=== PATIENT | female | born 1995 | race Hispanic/Latino ===

== ENCOUNTER 2020-02-10 17:55 | Inpatient (IN) | payer MEDICAID ==
[2020-02-09] MEDS: AMPICILLIN 1GM+NS 50ML 50 ML IV SCH (23:00)
[~2020-02-10] VITALS: Ht 154.9 cm; Wt 100.2 kg
[2020-02-10] MEDS ORDERED: LACTATED RINGERS 1000ML 1,000 ML IV PRN (17:58)
[2020-02-10] MEDS ORDERED: ROPIVACAINE 0.2% 100ML VIAL 100 ML EP SCH (18:00)
[2020-02-10] MEDS ORDERED: PROMETHAZINE HCL 25 MG/ML 1ML AMPULE IM PRN (18:00)
[2020-02-10] MEDS ORDERED: OXYTOCIN-LR 20 UNITS/1000 ML 1,000 ML IV SCH (18:00)
[2020-02-10] MEDS ORDERED: NALOXONE HCL 0.4 MG/1 ML ML IV PRN (18:00)
[2020-02-10] MEDS ORDERED: EPHEDRINE SULFATE 50 MG/ML AMPULE IVP PRN (18:00)
[2020-02-10] MEDS ORDERED: DINOPROSTONE 10 MG VAGINAL SUPP VG SCH (18:00)
[2020-02-10] MEDS ORDERED: MEPERIDINE-PF 50 MG/ML SYG IVP PRN (18:00)
[2020-02-10] MEDS ORDERED: LACTATED RINGERS 500 ML 500 ML IV PRN (18:00)
[2020-02-10] MEDS ORDERED: AMPICILLIN 2GM+NS 100ML 100 ML IV SCH (18:30)
[2020-02-10 18:58] LABS: HEMATOCRIT 32.5 % (36-48); MEAN CORPUSCULAR HEMOGLOBIN 24.7 pg (27.0-33.0); MEAN CORPUSCULAR HGB CONC 32.3 g/dL (32.0-36.0); MEAN CORPUSCULAR VOLUME 76.5 fL (79-99); PLATELET COUNT (AUTO) 163 K/uL (130-400); RED BLOOD CELL COUNT(AUTO) 4.25 MIL/uL (4.00-5.50); RED CELL DISTRIBUTION WIDTH 15.9 % (11.0-15.5); WHITE BLOOD COUNT (AUTO) 9.5 K/uL (4.8-10.8)
[2020-02-10 18:59] LABS: APPEARANCE,URINE CLOUDY (CLEAR); BILIRUBIN,URINE NEGATIVE (NEGATIVE); COLOR,URINE YELLOW (YELLOW); GLUCOSE, URINE (UA) NEGATIVE (NEGATIVE); KETONES,URINE 15 mg/dL (NEGATIVE); LEUKOCYTE ESTERASE ,URINE SMALL (NEGATIVE); NITRATE,URINE NEGATIVE (NEGATIVE); OCCULT BLOOD,URINE NEGATIVE (NEGATIVE); PH,URINE 6.5 (5.0-8.0); PROTEIN,URINE TRACE mg/dL (NEGATIVE)
[2020-02-10 19:08] LABS: AMPHET/METH SCREEN,URINE NEGATIVE (NEGATIVE); BARBITURATE SCREEN, URINE NEGATIVE (NEGATIVE); BENZODIAZEPINES SCREEN,URINE NEGATIVE (NEGATIVE); CANNABINOID SCREEN,URINE NEGATIVE (NEGATIVE); COCAINE SCREEN,URINE NEGATIVE (NEGATIVE); OPIATE SCREEN,URINE NEGATIVE (NEGATIVE); PHENCYCLIDINE SCREEN,URINE NEGATIVE (NEGATIVE)
[2020-02-10 19:12] LABS: BACTERIA,URINE Few /HPF (None Seen); RBC,URINE 0-1 /HPF (0-1)
[2020-02-10 19:13] LABS: SQUAMOUS EPITHELIAL CELL,UR Moderate /HPF (0-2)
[2020-02-10 19:15] VITALS: BP 117/70
[2020-02-10] MEDS ORDERED: PREN1TAB80 PO (20:39)
[2020-02-11] MEDS: AMPICILLIN 1GM+NS 50ML 50 ML IV SCH ×2 (02:41→06:33)
[2020-02-11] MEDS ORDERED: LACTATED RINGERS 1000ML 1,000 ML IV SCH (07:15)
[2020-02-11] MEDS ORDERED: CEFAZOLIN SODIUM 1 GM VIAL IVP PRN (07:15)
[2020-02-11] MEDS ORDERED: CEFAZOLIN SODIUM 1 GM VIAL ONE (07:31)
[2020-02-11] MEDS ORDERED: DURAMORPH PF1 MG/ML 10ML AMP IV ONE (07:31)
[2020-02-11] MEDS ORDERED: OXYTOCIN 10 USP UNITS/ML ONE (07:32)
[2020-02-11] MEDS ORDERED: EPINEPHRINE 1 MG/ML AMPULE ONE (07:34)
[2020-02-11] MEDS ORDERED: OXYTOCIN 10 USP UNITS/ML 20 UNIT in LACTATED RINGERS 1000ML 1,000 ML IV SCH (08:00)
[2020-02-11] MEDS ORDERED: CEFAZOLIN SODIUM 1 GM VIAL IVP ONE (08:20)
[2020-02-11] MEDS ORDERED: GLYCOPYRROLATE 1 MG/5 ML SYRINGE ONE (08:22)
[2020-02-11] MEDS ORDERED: MIDAZOLAM HCL 1 MG/ML 2ML VIAL ONE (08:26)
[2020-02-11] MEDS ORDERED: SODIUM CHLORIDE 0.9% 10 ML VIAL IVP PRN (09:00)
[2020-02-11] MEDS ORDERED: MEPERIDINE-PF 75 MG/ML SYG IM PRN (09:00)
[2020-02-11] MEDS ORDERED: OXYTOCIN-LR 20 UNITS/1000 ML 1,000 ML IV PRN (09:00)
[2020-02-11] MEDS ORDERED: DEXTROSE 5 %-0.45 % NACL 1,000 ML IV PRN (09:00)
[2020-02-11] MEDS ORDERED: ONDANSETRON HCL 4 MG/2 ML VIAL IVP PRN (09:45)
[2020-02-11] MEDS ORDERED: NALOXONE HCL 0.4 MG/1 ML ML IVP PRN ×2 (09:45)
[2020-02-11] MEDS ORDERED: DiphenhydrAMINE HCL 50 MG/ML VIAL IVP PRN (09:45)
[2020-02-11 12:30] VITALS: BP 112/68
[2020-02-11] MEDS ORDERED: MEPERIDINE-PF 100 MG/ML SYG ONE (12:30)
[2020-02-11] MEDS: PROMETHAZINE HCL 25 MG/ML 1ML AMPULE IM PRN (12:59)
[2020-02-11 16:26] VITALS: BP 105/51
[2020-02-11 19:45] VITALS: BP 100/51
[2020-02-12] VITALS (8 sets, daily range): BP systolic 93–123; BP diastolic 49–87
[2020-02-12] MEDS ORDERED: MEPERIDINE-PF 50 MG/ML SYG ONE (00:58)
[2020-02-12] MEDS ORDERED: MEPERIDINE-PF 25 MG/ML SYG ONE (00:58)
[2020-02-12] MEDS: PROMETHAZINE HCL 25 MG/ML 1ML AMPULE IM PRN ×2 (01:19→04:21)
[2020-02-12] MEDS ORDERED: MEPERIDINE-PF 100 MG/ML SYG ONE (04:13)
--- NOTE | 2020-02-12 06:45 | NUR ---
Espinoza; Espinoza Catheter taken out patient tolerated it well. Advice to call for help if needed. Lilian care done, abdominal Binder applied.
[2020-02-12 06:56] LABS: HEMATOCRIT 31.2 % (36-48); MEAN CORPUSCULAR HEMOGLOBIN 24.4 pg (27.0-33.0); MEAN CORPUSCULAR HGB CONC 32.4 g/dL (32.0-36.0); MEAN CORPUSCULAR VOLUME 75.4 fL (79-99); RED BLOOD CELL COUNT(AUTO) 4.14 MIL/uL (4.00-5.50); RED CELL DISTRIBUTION WIDTH 15.9 % (11.0-15.5); WHITE BLOOD COUNT (AUTO) 12.5 K/uL (4.8-10.8)
[2020-02-12] MEDS ORDERED: ACETAMINOPHEN EXTRA STRENGTH 500 MG TABLET PO PRN (09:00)
[2020-02-12] MEDS ORDERED: DIPH,PERTUSS(ACELL),TET VAC/PF 0.5 ML VIAL IM SCH (09:00)
[2020-02-12] MEDS ORDERED: BISACODYL 10 MG SUPP.RECT RC PRN (09:00)
[2020-02-12] MEDS ORDERED: LANOLIN 30GM OINTMENT TP PRN (09:00)
[2020-02-12] MEDS: SIMETHICONE 80 MG TAB.CHEW PO PRN ×3 (09:10→20:54)
[2020-02-12] MEDS: DOCUSATE SODIUM 100 MG CAP PO SCH ×2 (09:10→20:55)
[2020-02-12] MEDS: HYDROCODONE/ACETAMINOPHEN 5/325 MG TAB PO PRN ×2 (09:11→23:35)
[2020-02-12 10:12] LABS: HEPATITIS Bs ANTIGEN SCREEN P Negative (Negative)
[2020-02-12] MEDS: ACETAMINOPHEN-CODEINE 300/30MG TAB PO PRN (17:03)
[2020-02-13 04:10] VITALS: BP 102/49
[2020-02-13 07:25] VITALS: BP 118/69
[2020-02-13] MEDS: DOCUSATE SODIUM 100 MG CAP PO SCH (09:18)
[2020-02-13] MEDS: SIMETHICONE 80 MG TAB.CHEW PO PRN (09:18)
[2020-02-13] MEDS: ACETAMINOPHEN-CODEINE 300/30MG TAB PO PRN (09:18)
--- NOTE | 2020-02-13 11:35 | NUR ---
DISCHARGE PT LEFT UNIT VIA WHEELCHAIR, WITH BABY IN ARMS, ACCOMPANIED BY FAMILY MEMBER. DENIED PAIN AND HAD NO COMPLAINTS. BABY STRAPPED IN CAR SEAT. PT AND BABY TRANSPORTED BY PERSONAL VEHICLE.
== END 2020-02-13 11:35 | disposition home or self-care (01) | DRG 540 ==
LOC: LDH 17:55 → WSH 02-11 11:18
PROVIDERS: ADMIT Obstetrics & Gynecology; ATTEND Obstetrics & Gynecology
PROC: 10D00Z1 Extraction of Products of Conception, Low, Open Approach (ICD-10-PCS; principal; 2020-02-11 08:00)
DX: O32.1XX0 Maternal care for breech presentation, not applicable or unspecified (principal); D27.1 Benign neoplasm of left ovary; O99.824 Streptococcus B carrier state complicating childbirth; Z37.0 Single live birth; Z3A.39 39 weeks gestation of pregnancy; Z88.8 Allergy status to other drugs, medicaments and biological substances; O99.89 Other specified diseases and conditions complicating pregnancy, childbirth and the puerperium
CPT/HCPCS: 36415; 59510; 76815; 80305; 81001; 85027; 86592; 86701; 86850; 86900; 86901; 87088; 87340; 87390; A4344; G0378; J0171; J0290; J0690; J1200; J2175; J2250; J2274; J2405; J2550; J2590; J3490; J7120

== ENCOUNTER 2021-11-30 10:53 | Emergency (ER) | payer MEDICAID ==
[~2021-11-30] VITALS: Ht 154.9 cm; Wt 77.1 kg
[~2021-11-30 10:53] MED LIST: PREN1TAB80 PO
[2021-11-30 10:58] VITALS: BP 113/66
[2021-11-30] MEDS ORDERED: PENI500T2 PO (11:37)
[2021-11-30] MEDS ORDERED: ACET-2079 PO (11:37)
== END 2021-11-30 11:45 | disposition home or self-care (01) ==
LOC: EDH 10:53
DX: M27.2 Inflammatory conditions of jaws (principal); K08.89 Other specified disorders of teeth and supporting structures; Z88.6 Allergy status to analgesic agent

== ENCOUNTER 2024-02-21 18:35 | Emergency (ER) | payer MEDICAID, OTHER ==
[~2024-02-21] VITALS: Ht 154.9 cm; Wt 81.6 kg
[~2024-02-21 18:35] MED LIST changes: +ACET-2079 PO; +PENI500T2 PO
[2024-02-21] MEDS: ONDANSETRON 4MG INJ IVP ONE (19:53)
[2024-02-21] MEDS: 0.9%NACL 1000ML 1,000 ML IV ONE (19:53)
[2024-02-21] MEDS: MORPHINE 2 MG SYG IVP ONE (19:54)
[2024-02-21 19:59] LABS: BASOPHILS # (AUTO) 0.06 K/uL (0.00-0.20); BASOPHILS % (AUTO) 0.3 % (0.0-5.0); EOSINOPHILS # (AUTO) 0.11 K/uL (0.00-0.70); EOSINOPHILS % (AUTO) 0.6 % (0.0-8.0); HEMATOCRIT 43.3 % (36-48); IMMATURE GRANULOCYTE ABSOLUTE 0.16 K/uL (0-1); LYMPHOCYTES # (AUTO) 2.3 K/uL (1.0-4.8); LYMPHOCYTES % (AUTO) 13.2 % (21.0-51.0); MEAN CORPUSCULAR HEMOGLOBIN 29.4 pg (27.0-33.0); MEAN CORPUSCULAR HGB CONC 34.9 g/dL (32.0-36.0); MEAN CORPUSCULAR VOLUME 84.4 fL (79-99); NEUTROPHILS # (AUTO) 13.7 K/uL (1.8-7.7); PLATELET COUNT (AUTO) 295 K/uL (130-400); RED BLOOD CELL COUNT(AUTO) 5.13 MIL/uL (4.00-5.50); RED CELL DISTRIBUTION WIDTH 12.8 % (11.0-15.5); WHITE BLOOD COUNT (AUTO) 17.3 K/uL (4.8-10.8)
[2024-02-21 20:13] LABS: CREATININE 0.8 mg/dL (0.5-1.0); POTASSIUM 3.8 mmol/L (3.5-5.1)
[2024-02-21 20:18] LABS: BILIRUBIN,TOTAL 0.4 mg/dL (0.2-1.0); TOTAL PROTEIN, SERUM 7.8 g/dL (6.0-8.3)
[2024-02-21 20:40] LABS: APPEARANCE,URINE CLOUDY (CLEAR); BILIRUBIN,URINE NEGATIVE (NEGATIVE); COLOR,URINE YELLOW (YELLOW); GLUCOSE, URINE (UA) NEGATIVE (NEGATIVE); KETONES,URINE 150 mg/dL (NEGATIVE); LEUKOCYTE ESTERASE ,URINE 250 Leu/uL (NEGATIVE); NITRATE,URINE NEGATIVE (NEGATIVE); OCCULT BLOOD,URINE NEGATIVE (NEGATIVE); PROTEIN,URINE 30 mg/dL (NEGATIVE)
[2024-02-21] MEDS: 0.9%NACL 1000ML 1,434 ML IV SCH (20:46)
[2024-02-21] MEDS: CEFTRIAXONE 2GM VIAL IVPB SCH (20:46)
[2024-02-21 20:53] LABS: HCG,QUALITATIVE URINE NEGATIVE (NEGATIVE)
[2024-02-21 20:54] LABS: ADD UA MICROSCOPIC YES
[2024-02-21 20:55] LABS: BACTERIA,URINE RARE /HPF (None Seen); MUCUS,URINE MOD LPF (None Seen); SQUAMOUS EPITHELIAL CELL,UR MANY /HPF (0-2)
[2024-02-21 21:24] VITALS: BP 128/78; PULSE 59; RESP 17; O2SAT 96
[2024-02-21] MEDS ORDERED: ONDA-243 PO (21:42)
[2024-02-21] MEDS: METOCLOPRAMIDE 10 MG/2 ML VIAL IVP SCH (21:53)
[2024-02-21] MEDS: BISACODYL 10 MG SUPP.RECT RC SCH (21:53)
[2024-02-21] MEDS: LACTULOSE 20 GM/30 ML UDCUP PO SCH (21:53)
[2024-02-23] MEDS ORDERED: ONDA-243 PO (14:03)
== END 2024-02-21 22:02 | disposition home or self-care (01) ==
LOC: EDH 18:35
DX: K59.00 Constipation, unspecified (principal); R11.2 Nausea with vomiting, unspecified; E86.0 Dehydration; D25.9 Leiomyoma of uterus, unspecified; D72.829 Elevated white blood cell count, unspecified; Z88.6 Allergy status to analgesic agent
CPT/HCPCS: 99285; 74176; 96365; 96375; 96361; 80053; 84703; 85025; 87040 ×2; 87086; 83605; 81001; 81025; 36415; J2270; J7030; J0696; J2405; J2765

== ENCOUNTER → 2024-02-23 | Emergency (ER) | payer BC, OTHER ==
[~2024-02-23] VITALS: Ht 154.9 cm; Wt 83.9 kg
[~2024-02-23] MED LIST changes: +METO10TA41 PO; +ONDA-243 PO; +PANT40TA55 PO; +POTA-187 PO
[2024-02-23 10:05] LABS: BASOPHILS # (AUTO) 0.08 K/uL (0.00-0.20); BASOPHILS % (AUTO) 0.9 % (0.0-5.0); EOSINOPHILS # (AUTO) 0.08 K/uL (0.00-0.70); EOSINOPHILS % (AUTO) 0.9 % (0.0-8.0); HEMATOCRIT 42.4 % (36-48); IMMATURE GRANULOCYTE ABSOLUTE 0.05 K/uL (0-1); LYMPHOCYTES # (AUTO) 2.3 K/uL (1.0-4.8); LYMPHOCYTES % (AUTO) 24.9 % (21.0-51.0); MEAN CORPUSCULAR HEMOGLOBIN 29.8 pg (27.0-33.0); MEAN CORPUSCULAR HGB CONC 35.6 g/dL (32.0-36.0); MEAN CORPUSCULAR VOLUME 83.6 fL (79-99); MONOCYTES # (AUTO) 0.6 K/uL (0.1-1.0); MONOCYTES % (AUTO) 6.2 % (3.0-13.0); NEUTROPHILS % (AUTO) 66.5 % (40.0-77.0); PLATELET COUNT (AUTO) 272 K/uL (130-400); RED BLOOD CELL COUNT(AUTO) 5.07 MIL/uL (4.00-5.50); RED CELL DISTRIBUTION WIDTH 12.6 % (11.0-15.5); WHITE BLOOD COUNT (AUTO) 9.1 K/uL (4.8-10.8)
[2024-02-23 10:17] LABS: CREATININE 0.8 mg/dL (0.5-1.0); POTASSIUM 3.4 mmol/L (3.5-5.1)
[2024-02-23 10:20] LABS: ALBUMIN 4.2 g/dL (3.5-5.0); BILIRUBIN,TOTAL 0.8 mg/dL (0.2-1.0); TOTAL PROTEIN, SERUM 7.7 g/dL (6.0-8.3)
[2024-02-23 10:29] LABS: APPEARANCE,URINE CLOUDY (CLEAR); BILIRUBIN,URINE NEGATIVE (NEGATIVE); COLOR,URINE YELLOW (YELLOW); GLUCOSE, URINE (UA) NEGATIVE (NEGATIVE); KETONES,URINE 150 mg/dL (NEGATIVE); LEUKOCYTE ESTERASE ,URINE 75 Leu/uL (NEGATIVE); NITRATE,URINE NEGATIVE (NEGATIVE); OCCULT BLOOD,URINE NEGATIVE (NEGATIVE); PH,URINE 7.5 (5.0-8.0); PROTEIN,URINE 100 mg/dL (NEGATIVE)
[2024-02-23] MEDS: ONDANSETRON 4MG INJ IVP ONE (10:29)
[2024-02-23 10:31] LABS: HCG,QUALITATIVE URINE NEGATIVE (NEGATIVE)
[2024-02-23 10:32] LABS: ADD UA MICROSCOPIC YES
[2024-02-23 10:34] LABS: BACTERIA,URINE FEW /HPF (None Seen); MUCUS,URINE MANY LPF (None Seen); SQUAMOUS EPITHELIAL CELL,UR MANY /HPF (0-2)
[2024-02-23] MEDS: 0.9%NACL 1000ML 1,000 ML IV ONE (11:00)
[2024-02-23] MEDS: MORPHINE 4 MG SYG IVP ONE (11:45)
[2024-02-23 12:48] VITALS: BP 126/65; PULSE 88; RESP 18; O2SAT 99
== END ==
LOC: EDH 09:45
DX: D36.9 Benign neoplasm, unspecified site (principal); K59.09 Other constipation; R10.2 Pelvic and perineal pain; Z79.899 Other long term (current) drug therapy; Z88.8 Allergy status to other drugs, medicaments and biological substances
CPT/HCPCS: 99284; 74176; 96374; 96375; 80053; 84702; 83690; 85025; 81001; 81025; 36415; J7030; J2405; J2270

== ENCOUNTER 2024-02-25 04:13 | Emergency (ER) | payer BC ==
[~2024-02-25] VITALS: Ht 154.9 cm; Wt 83.9 kg
[~2024-02-25 04:13] MED LIST changes: -METO10TA41 PO; -PANT40TA55 PO; -POTA-187 PO
[2024-02-25 04:36] LABS: APPEARANCE,URINE CLOUDY (CLEAR); BILIRUBIN,URINE NEGATIVE (NEGATIVE); COLOR,URINE YELLOW (YELLOW); GLUCOSE, URINE (UA) NEGATIVE (NEGATIVE); KETONES,URINE 150 mg/dL (NEGATIVE); LEUKOCYTE ESTERASE ,URINE NEGATIVE Leu/uL (NEGATIVE); NITRATE,URINE NEGATIVE (NEGATIVE); OCCULT BLOOD,URINE NEGATIVE (NEGATIVE); PH,URINE 8.5 (5.0-8.0); PROTEIN,URINE 100 mg/dL (NEGATIVE); UROBILINOGEN,URINE >=8.0 mg/dL (0.2-1.0)
[2024-02-25 04:43] LABS: AMPHET/METH SCREEN,URINE NEGATIVE (NEGATIVE); BARBITURATE SCREEN, URINE NEGATIVE (NEGATIVE); BENZODIAZEPINES SCREEN,URINE NEGATIVE (NEGATIVE); CANNABINOID SCREEN,URINE POSITIVE (NEGATIVE); COCAINE SCREEN,URINE NEGATIVE (NEGATIVE); OPIATE SCREEN,URINE NEGATIVE (NEGATIVE); PHENCYCLIDINE SCREEN,URINE NEGATIVE (NEGATIVE)
[2024-02-25] MEDS: 0.9%NACL 1000ML 1,000 ML IV ONE (04:44)
[2024-02-25 04:45] LABS: BASOPHILS # (AUTO) 0.04 K/uL (0.00-0.20); BASOPHILS % (AUTO) 0.2 % (0.0-5.0); HEMATOCRIT 42.1 % (36-48); IMMATURE GRANULOCYTE ABSOLUTE 0.11 K/uL (0-1); LYMPHOCYTES # (AUTO) 2.1 K/uL (1.0-4.8); LYMPHOCYTES % (AUTO) 12.6 % (21.0-51.0); MEAN CORPUSCULAR HEMOGLOBIN 29.6 pg (27.0-33.0); MEAN CORPUSCULAR HGB CONC 36.1 g/dL (32.0-36.0); MEAN CORPUSCULAR VOLUME 82.1 fL (79-99); NEUTROPHILS # (AUTO) 13.6 K/uL (1.8-7.7); NEUTROPHILS % (AUTO) 80.5 % (40.0-77.0); PLATELET COUNT (AUTO) 299 K/uL (130-400); RED BLOOD CELL COUNT(AUTO) 5.13 MIL/uL (4.00-5.50); RED CELL DISTRIBUTION WIDTH 12.3 % (11.0-15.5); WHITE BLOOD COUNT (AUTO) 16.9 K/uL (4.8-10.8)
[2024-02-25] MEDS: PANTOPRAZOLE 40 MG/VIAL IVP ONE (04:45)
[2024-02-25 04:48] LABS: ADD UA MICROSCOPIC YES; HCG,QUALITATIVE URINE NEGATIVE (NEGATIVE)
[2024-02-25 04:49] LABS: MUCUS,URINE FEW LPF (None Seen); SQUAMOUS EPITHELIAL CELL,UR MANY /HPF (0-2)
[2024-02-25] MEDS: ONDANSETRON 4MG INJ IVP ONE (04:52)
[2024-02-25 05:08] LABS: ALBUMIN 4.3 g/dL (3.5-5.0); BILIRUBIN,TOTAL 1.1 mg/dL (0.2-1.0); TOTAL PROTEIN, SERUM 8.1 g/dL (6.0-8.3)
[2024-02-25 05:15] LABS: POTASSIUM 2.5 mmol/L (3.5-5.1)
[2024-02-25] MEDS: POTASSIUM CHLORIDE 10MEQ/100ML 100 ML IV ONE (05:34)
[2024-02-25] MEDS: POTASSIUM BICARB/CIT AC 25 MEQ TABLET.EFF PO ONE (05:34)
[2024-02-25] MEDS: HALOPERIDOL INJ 5 MG/ML VIAL IV PRN (05:37)
[2024-02-25] MEDS ORDERED: POTA-187 PO (06:11)
[2024-02-25] MEDS ORDERED: ONDA-243 PO (06:11)
[2024-02-25] MEDS ORDERED: PANT40TA55 PO (06:11)
[2024-02-25 06:48] VITALS: BP 118/62; PULSE 78; RESP 17; O2SAT 99
[2024-02-26] MEDS ORDERED: METO10TA41 PO (10:57)
== END 2024-02-25 07:00 | disposition home or self-care (01) ==
LOC: EDH 04:13
DX: F12.10 Cannabis abuse, uncomplicated (principal); R11.2 Nausea with vomiting, unspecified; Z79.899 Other long term (current) drug therapy; Z88.8 Allergy status to other drugs, medicaments and biological substances
CPT/HCPCS: 99284; 82550; 83735; 80053; 80305; 83690; 85025; 81001; 81025; 36415; 96374; 96375; 93005; J7030; J1630; J2405; J2470; J3480

== ENCOUNTER 2024-02-26 10:16 | Emergency (ER) | payer BC ==
[~2024-02-26] VITALS: Ht 170.2 cm; Wt 83.9 kg
[~2024-02-26 10:16] MED LIST changes: +PANT40TA55 PO; +POTA-187 PO
[2024-02-26] MEDS: ONDANSETRON 4MG INJ IVP ONE (10:30)
[2024-02-26 10:38] VITALS: BP 125/67; PULSE 68; RESP 14; O2SAT 100
[2024-02-26] MEDS: METOCLOPRAMIDE 10 MG/2 ML VIAL IVP ONE (10:38)
[2024-02-26] MEDS ORDERED: METO10TA41 PO (10:57)
== END 2024-02-26 11:04 | disposition home or self-care (01) ==
LOC: EDH 10:16
DX: R11.2 Nausea with vomiting, unspecified (principal); Z79.899 Other long term (current) drug therapy; Z98.890 Other specified postprocedural states; Z88.8 Allergy status to other drugs, medicaments and biological substances
CPT/HCPCS: 99284; 96374; 96375; J2405; J2765